=== PATIENT | male | born 1975 | race Caucasian/White ===

== ENCOUNTER 2016-11-10 12:27 | Day surgery (SDC) | payer OTHER ==
[~2016-11-10] VITALS: Ht 177.8 cm; Wt 90.3 kg
[~2016-11-10 12:27] MED LIST: IBUPROFEN200 M1 PO; PERCOCET 10/1 TABLET PO
[2016-11-10] MEDS ORDERED: DICLOFENAC SOD100 MG PO (12:49)
== END 2016-11-10 14:01 | disposition home or self-care (01) ==
LOC: PAIN 12:27 → SDC 13:00 → PAIN 13:00
DX: M47.816 Spondylosis without myelopathy or radiculopathy, lumbar region (principal); M54.5 Low back pain; F17.210 Nicotine dependence, cigarettes, uncomplicated; Z79.891 Long term (current) use of opiate analgesic
CPT/HCPCS: J1030; J2250; J3010; S0020

== ENCOUNTER 2016-11-17 11:45 | Day surgery (SDC) | payer OTHER ==
[~2016-11-17] VITALS: Ht 177.8 cm; Wt 90.3 kg
[~2016-11-17 11:45] MED LIST changes: +DICLOFENAC SOD100 MG PO
== END 2016-11-17 13:23 | disposition home or self-care (01) ==
LOC: PAIN 11:45 → SDC 12:30 → PAIN 13:23
DX: M47.816 Spondylosis without myelopathy or radiculopathy, lumbar region (principal); G89.29 Other chronic pain; M54.5 Low back pain; M25.552 Pain in left hip; M25.562 Pain in left knee; M79.1 Myalgia; F17.210 Nicotine dependence, cigarettes, uncomplicated
CPT/HCPCS: J1030; J2250; J3010; S0020